=== PATIENT | female | born 1945 | race Caucasian/White ===

== ENCOUNTER 2018-06-15 09:51 | Outpatient (CLI) | payer BC, MEDICARE ==
--- NOTE | 2018-06-15 11:05 | MMO ---
SCREENING MAMMOGRAM: INDICATION: Screening. COMPARISON: Mammogram from 2016, 2015, and 2013. TECHNIQUE: Bilateral CC and MLO views were performed with computer-aided detection. FINDINGS: Benign calcifications of both breasts. Scattered fibroglandular densities. No suspicious mass, arch itectural distortion, or microcalcifications. IMPRESSION: BI-RADS category 2, benign findings. Continued screening is recommended. BIRADS 2: Benign Finding(s) Routine annual screening mammography (for women over age 40) POS: CASSANDRA
== END 2018-06-15 09:52 | disposition home or self-care (01) ==
LOC: SCSMAMMO 09:51
PROVIDERS: ATTEND Internal Medicine
DX: Z12.31 Encounter for screening mammogram for malignant neoplasm of breast (principal)
CPT/HCPCS: 77067

== ENCOUNTER 2018-09-23 09:43 | Outpatient (CLI) | payer BC, MEDICARE ==
--- NOTE | 2018-09-23 11:56 | BD ---
DEXA BONE DENSITY SCAN: Date: 09/23/18 COMPARISON: 09/14/17. HISTORY: Postmenopausal female undergoing screening for osteoporosis. FINDINGS: BMD (g/cm2) Left Femoral Neck 0.573 T-Score -2.5 (previous -2.3) Total Proximal Left Femur 0.715 T-Score -1.9 (previous -1.5) Right Femoral Neck 0.540 T-Score -2.8 (previous -2.9) Total Proximal Right Femur 0.690 T-Score -2.1 (previous -1.7) FRAX-WHO fracture risk assessment tool is not reported as some T-Scores are at or below -2.5. 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 POS: C
== END 2018-09-23 09:44 | disposition home or self-care (01) ==
LOC: BICMAMMO 09:43
PROVIDERS: ATTEND Internal Medicine Rheumatology
DX: M81.0 Age-related osteoporosis without current pathological fracture (principal)
CPT/HCPCS: 77080

== ENCOUNTER 2020-06-21 13:44 | Outpatient (CLI) | payer BC, MEDICARE ==
--- NOTE | 2020-06-21 14:38 | MMO ---
Bilateral MAMMO Bilat Screen [facility]. CLINICAL HISTORY: Patient is 75 years old and is seen for screening. The patient has no family history of breast cancer. The patient has no personal history of cancer. VIEWS: The views performed were: bilateral craniocaudal with tomosynthesis and bilateral mediolateral oblique with tomosynthesis. FILMS COMPARED: The present examination has been compared to prior imaging studies performed at [facility] on 04/11/2014, 05/01/2015, 05/14/2016 and 06/15/2018. This study has been interpreted with the assistance of computer-aided detection. MAMMOGRAM FINDINGS: There are scattered fibroglandular densities. There are stable benign appearing calcifications seen in both breasts. There are no suspicious masses, suspicious calcifications, or new areas of architectural distortion. IMPRESSION: THERE IS NO MAMMOGRAPHIC EVIDENCE OF MALIGNANCY. A ROUTINE FOLLOW-UP MAMMOGRAM IN 1 YEAR IS RECOMMENDED. THE RESULTS OF THIS EXAM WERE SENT TO THE PATIENT. ACR BI-RADS Category 2 - Benign finding MAMMOGRAPHY NOTE: 1. A negative mammogram report should not delay a biopsy if a dominant of clinically suspicious mass is present. 2. Approximately 10% to 15% of breast cancers are not detected by mammography. 3. Adenosis and dense breasts may obscure an underlying neoplasm. Reported by: CARMEN NVAA MD Electonically Signed: [id number]
--- NOTE | 2020-06-21 14:49 | BD ---
Exam: DEXA Bone Density 06/21/20 COMPARISON: 09/23/18 HISTORY: Postmenopausal female undergoing screening for osteoporosis. Bilateral proximal femurs: BMD (g/cm2) T-SCORE Left femoral neck 0.613 -2.1 Previous T-Score -2.5 Total proximal left femur 0.755 -1.5 Previous -1.9 Right femoral neck 0.562 -2.6 Previous T-Score -2.8 Total proximal right femur 0.711 -1.9 Previous -2.1 The FRAX-WHO fracture risk assessment tool is not reported as some T-Scores are at or below negative 2.5. Total bone mineral density within the proximal right femur has increased by 3% since the prior examin ation and bone mineral density within the total proximal left femur has increased by 5.6% when compar ed to prior imaging. Impression: Osteoporosis of the femoral neck on the right correlates with a high risk for fracture. POS: AH
== END 2020-06-21 13:45 | disposition home or self-care (01) ==
LOC: BICMAMMO 13:44
PROVIDERS: ATTEND Internal Medicine
DX: Z12.31 Encounter for screening mammogram for malignant neoplasm of breast (principal); M85.80 Other specified disorders of bone density and structure, unspecified site; M81.0 Age-related osteoporosis without current pathological fracture
CPT/HCPCS: 77063; 77067; 77080

== ENCOUNTER 2020-12-10 06:29 | Day surgery (SDC) | payer BC, MEDICARE ==
[2020-11-29 12:16] VITALS: BMI 24.7
[2020-12-10] MEDS ORDERED: Tranexamic Acid 1,000 MG/10 ML VIAL ONE (07:44)
[2020-12-10] MEDS ORDERED: Vancomycin 1 GM/200 ML BAG ONE (07:45)
[2020-12-10] MEDS ORDERED: Sodium Chloride 0.9% 100 ML ONE (07:47)
[2020-12-10] MEDS ORDERED: Midazolam HCl 2 mg/2 ml Vial ONE (08:07)
[2020-12-10] MEDS ORDERED: Fentanyl 100 MCG/2 ML VIAL ONE ×4 (08:07→11:32)
[2020-12-10] MEDS ORDERED: Fentanyl 100 MCG/2 ML VIAL IV PRN (08:57)
[2020-12-10] MEDS ORDERED: Promethazine HCl 25 MG/ML VIAL IM PRN ×2 (09:00→09:02)
[2020-12-10] MEDS ORDERED: traMADol HCl 50 MG TAB PO PRN ×2 (09:00)
[2020-12-10] MEDS ORDERED: Ropivacaine HCl/PF 250 ML in Premix Bag 1 BAG NERVE BLCK SCH (09:00)
[2020-12-10] MEDS ORDERED: Zolpidem Tartrate 5 MG TAB PO PRN ×2 (09:00→09:02)
[2020-12-10] MEDS ORDERED: Ondansetron PF 4 MG/2 ML Vial IVP PRN ×2 (09:00→09:02)
[2020-12-10] MEDS ORDERED: Acetaminophen 325 MG TAB PO PRN (09:02)
[2020-12-10] MEDS ORDERED: diphenhydrAMINE 25 MG CAP PO PRN (09:02)
[2020-12-10] MEDS ORDERED: PROPOFOL 200 MG/20 ML VIAL ONE (10:28)
[2020-12-10] MEDS ORDERED: PHENYLEPHRINE-NS 100 MCG/ML 10 ML SYRINGE ONE (10:28)
[2020-12-10] MEDS ORDERED: Ondansetron PF 4 MG/2 ML Vial ONE (10:28)
[2020-12-10] MEDS ORDERED: Dexamethasone 20 MG/5 ML VIAL ONE (10:28)
[2020-12-10] MEDS ORDERED: ePHEDrine 50 MG/ML VIAL ONE (10:28)
[2020-12-10] MEDS ORDERED: Ropivacaine 2% HCl/PF (20 MG/10 ML VIAL) ONE (10:28)
[2020-12-10] MEDS ORDERED: Bupivacaine HCl 0.5%/Epinephrine 1:200,000/PF 30 ml Vial ONE (10:28)
[2020-12-10] MEDS ORDERED: Metoclopramide HCl 10 MG/2 ML VIAL ONE (10:28)
[2020-12-10] MEDS ORDERED: Ketorolac Tromethamine 30 MG/ML VIAL ONE (10:28)
[2020-12-10] MEDS ORDERED: Lidocaine 1% PF 5 ML VIAL ONE (10:28)
[2020-12-10] MEDS ORDERED: Promethazine HCl 25 MG/ML VIAL ONE (11:32)
[2020-12-10] MEDS ORDERED: Ropivacaine 0.2% 550 ML 550 ML NERVE BLCK SCH (12:00)
[2020-12-10] MEDS: Sodium Chloride 0.9% 1,000 ML IV SCH (17:45)
[2020-12-10] MEDS: Ketorolac Tromethamine 30 MG/ML VIAL IVP SCH ×3 (17:46→23:22)
[2020-12-10] MEDS: CEFAZOLIN 2 GM in Premix Bag 1 BAG IVPB SCH ×2 (18:04→23:22)
[2020-12-10] MEDS: HYDROcodone/Acetaminophen 10/325 mg Tablet PO PRN (20:21)
[2020-12-10] MEDS: Ferrous Gluconate 324 MG TAB PO SCH (20:22)
[2020-12-10] MEDS: Senokot S 8.6-50 MG TAB PO SCH (20:23)
[2020-12-10] MEDS: Aspirin 81 mg Enteric Coated Tablet PO SCH (20:23)
[2020-12-11] MEDS: Sodium Chloride 0.9% 1,000 ML IV SCH ×2 (04:34→20:10)
[2020-12-11] MEDS: Ketorolac Tromethamine 30 MG/ML VIAL IVP SCH ×4 (05:10→23:30)
[2020-12-11 06:33] LABS: Hemoglobin 11.7 g/dL (12.0-16.0); Mean Corpuscular HGB CONC 33.8 g/dL (32.0-36.0); Mean Corpuscular Hemoglobin 33.4 pg (27.0-31.0); Mean Corpuscular Volume 98.9 fL (78.0-98.0); Mean Platelet Volume 7.2 fL (7.4-10.4); Platelet Count 276 thou/uL (130-400); RBC Distribution Width 11.4 % (11.5-14.5); Red Blood Cell (RBC) Count 3.51 mill/uL (4.20-5.40)
[2020-12-11] MEDS: Aspirin 81 mg Enteric Coated Tablet PO SCH ×2 (08:46→21:03)
[2020-12-11] MEDS: Senokot S 8.6-50 MG TAB PO SCH ×2 (08:46→21:03)
[2020-12-11] MEDS: Cholecalciferol 1,000 UNITS (25 MCG) TAB PO SCH (08:46)
[2020-12-11] MEDS: HYDROcodone/Acetaminophen 10/325 mg Tablet PO PRN ×3 (08:47→17:32)
[2020-12-11] MEDS: Ferrous Gluconate 324 MG TAB PO SCH ×2 (12:03→21:02)
[2020-12-11] MEDS: Multivit, Therapeutic 1 TAB PO SCH (12:03)
[2020-12-11] MEDS: Multivitamin W/ Minerals 1 TAB PO SCH (12:04)
[2020-12-11] MEDS ORDERED: Rosuvastatin 10 MG TAB PO SCH (21:00)
[2020-12-12] MEDS: HYDROcodone/Acetaminophen 10/325 mg Tablet PO PRN ×3 (01:23→12:59)
[2020-12-12] MEDS: Sodium Chloride 0.9% 1,000 ML IV SCH ×2 (03:40→12:11)
[2020-12-12 05:32] LABS: Hemoglobin 11.2 g/dL (12.0-16.0); Mean Corpuscular Hemoglobin 32.9 pg (27.0-31.0); Mean Corpuscular Volume 99.8 fL (78.0-98.0); Mean Platelet Volume 6.8 fL (7.4-10.4); Platelet Count 244 thou/uL (130-400); RBC Distribution Width 11.5 % (11.5-14.5); Red Blood Cell (RBC) Count 3.39 mill/uL (4.20-5.40); White Blood Cell (WBC) Count 10.9 thou/uL (4.8-10.8)
[2020-12-12] MEDS: Ketorolac Tromethamine 30 MG/ML VIAL IVP SCH (05:35)
[2020-12-12] MEDS: Aspirin 81 mg Enteric Coated Tablet PO SCH (08:39)
[2020-12-12] MEDS: Cholecalciferol 1,000 UNITS (25 MCG) TAB PO SCH (08:39)
[2020-12-12] MEDS: Multivitamin W/ Minerals 1 TAB PO SCH (08:39)
[2020-12-12] MEDS: Senokot S 8.6-50 MG TAB PO SCH (08:39)
[2020-12-12] MEDS: Ferrous Gluconate 324 MG TAB PO SCH (08:39)
[2020-12-12] MEDS: Multivit, Therapeutic 1 TAB PO SCH (08:40)
[2020-12-12 11:08] VITALS: BP 131/67; TEMP 98.4
[2020-12-20] MEDS ORDERED: Aspirin Chewable 81 MG TAB PO SCH (09:00)
== END 2020-12-12 14:20 | disposition home or self-care (01) ==
LOC: SDC 06:29 → SJJU 09:02 → SDC 12-12 14:20
PROVIDERS: ATTEND Orthopaedic Surgery
PROC: 0SRC0J9 Replacement of Right Knee Joint with Synthetic Substitute, Cemented, Open Approach (ICD-10-PCS; principal; 2020-12-10)
DX: M17.11 Unilateral primary osteoarthritis, right knee (principal); Z79.1 Long term (current) use of non-steroidal anti-inflammatories (NSAID); Z79.899 Other long term (current) drug therapy; Z91.048 Other nonmedicinal substance allergy status
CPT/HCPCS: 36415; 85027; A4306; C1713; C1776; J0690; J1100; J1885; J2250; J2405; J2550; J2704; J2765; J2795; J3010; J3370; J3490

== ENCOUNTER 2021-07-14 08:51 | Outpatient (CLI) | payer BC, MEDICARE | END 2021-07-14 08:52 | disposition home or self-care (01) | LOC: BICMAMMO 08:51 | PROVIDERS: ATTEND Internal Medicine | DX: Z12.31 Encounter for screening mammogram for malignant neoplasm of breast (principal) | CPT/HCPCS: 77063; 77067 ==

== ENCOUNTER 2021-08-14 12:51 | Outpatient (CLI) | payer BC, MEDICARE ==
[2021-08-14 13:40] LABS: #Basophils 0.1 10x3/uL (0.0-0.2); #Eosinphils 0.2 10x3/uL (0.0-0.5); #Monocytes 0.7 10x3/uL (0.0-1.1); #Neutrophils 5.5 10x3/uL (1.5-8.4); %Basophils 0.6 % (0.0-2.0); %Eosinophils 1.9 % (0.0-6.0); %Monocytes 8.3 % (0.0-10.0); %Neutrophils 67.6 % (40.0-75.0); Hemoglobin 14.8 g/dL (12.0-15.5); Mean Corpuscular HGB CONC 33.8 g/dL (32.0-36.0); Mean Corpuscular Volume 94.8 fl (81.6-98.3); Mean Platelet Volume 9.8 fl (7.4-10.4); Platelet Count 295 10x3/uL (150-450); Red Blood Cell (RBC) Count 4.62 10x6/uL (3.90-5.03); White Blood Cell (WBC) Count 8.1 10x3/uL (3.5-10.5)
[2021-08-14 13:41] LABS: Bilirubin Neg (Negative); Blood, Urine Negative (Negative); Clarity Clear (Clear); Glucose, Urine (Dipstick) Normal (Negative); Ketone, Urine Negative (Negative); Leukocyte Negative (Negative); Nitrite Negative (Negative); Protein, Urine (Dipstick) Negative (Neg-Trace); Urobilinogen Normal mg/dL (Less than 2)
[2021-08-14 13:52] LABS: INR-International Normal Ratio 0.9; Prothrombin Time 10.3 sec (9.5-12.1)
[2021-08-14 13:54] LABS: Anion Gap 14 mmol/L (10-20); BUN (Urea Nitrogen) 19 mg/dL (9.8-20.1); Calc. Creatinine Clearance 0 mL/min (70-130); Calcium 9.4 mg/dL (7.8-10.44); Carbon Dioxide 26 mmol/L (23-31); Chloride 104 mmol/L (98-107); Glucose 117 mg/dL (83-110); Potassium 4.1 mmol/L (3.5-5.1); Sodium 140 mmol/L (136-145)
[2021-08-15 01:42] LABS: SARS-CoV-2 PCR by NAA Not Detected (NotDetected)
== END 2021-08-14 12:52 | disposition home or self-care (01) ==
LOC: LABBT 12:51
PROVIDERS: ATTEND Orthopaedic Surgery
DX: Z01.818 Encounter for other preprocedural examination (principal); M17.12 Unilateral primary osteoarthritis, left knee; Z20.822 Contact with and (suspected) exposure to COVID-19
CPT/HCPCS: 80048; 81003; 85025; 85610; 87081; 93005; 93010; U0003; U0005

== ENCOUNTER 2021-08-19 06:35 | Day surgery (SDC) | payer BC, MEDICARE ==
[2021-08-18 10:46] VITALS: BMI 23.8
[2021-08-19] MEDS ORDERED: Vancomycin 1 GM/200 ML BAG ONE (07:07)
[2021-08-19] MEDS ORDERED: Tranexamic Acid 1,000 MG/10 ML VIAL ONE (07:07)
[2021-08-19] MEDS ORDERED: Sodium Chloride 0.9% 100 ML ONE (07:07)
[2021-08-19] MEDS ORDERED: ceFAZolin 2 GM/DEX 5% 100 ML BAG ONE (07:07)
[2021-08-19] MEDS ORDERED: Fentanyl 100 MCG/2 ML VIAL ONE ×4 (07:48→11:59)
[2021-08-19] MEDS ORDERED: Midazolam HCl 2 mg/2 ml Vial ONE (07:48)
[2021-08-19] MEDS ORDERED: Fentanyl 100 MCG/2 ML VIAL IV PRN (08:04)
[2021-08-19] MEDS ORDERED: Promethazine HCl 25 MG/ML VIAL IM PRN ×3 (08:15→11:54)
[2021-08-19] MEDS ORDERED: traMADol HCl 50 MG TAB PO PRN ×2 (08:15)
[2021-08-19] MEDS ORDERED: HYDROcodone/Acetaminophen 10/325 mg Tablet PO PRN (08:15)
[2021-08-19] MEDS ORDERED: Ondansetron PF 4 MG/2 ML Vial IVP PRN ×2 (08:15→11:54)
[2021-08-19] MEDS ORDERED: Ropivacaine HCl/PF 250 ML in Premix Bag 1 BAG NERVE BLCK SCH (08:15)
[2021-08-19] MEDS ORDERED: Zolpidem Tartrate 5 MG TAB PO PRN ×2 (08:15→11:54)
[2021-08-19] MEDS ORDERED: Lidocaine 1% PF 5 ML VIAL ONE (09:31)
[2021-08-19] MEDS ORDERED: PROPOFOL 200 MG/20 ML VIAL ONE (09:31)
[2021-08-19] MEDS ORDERED: Ondansetron PF 4 MG/2 ML Vial ONE (09:31)
[2021-08-19] MEDS ORDERED: Dexamethasone 20 MG/5 ML VIAL ONE (09:31)
[2021-08-19] MEDS ORDERED: Bupivacaine HCl 0.5%/Epinephrine 1:200,000/PF 30 ml Vial ONE (09:31)
[2021-08-19] MEDS ORDERED: Ketorolac Tromethamine 30 MG/ML VIAL ONE ×2 (09:31→11:22)
[2021-08-19] MEDS ORDERED: Promethazine HCl 25 MG/ML VIAL IVPB PRN (10:36)
[2021-08-19] MEDS ORDERED: Ondansetron HCl/PF 4 MG/2 ML Vial IVP PRN (10:36)
[2021-08-19] MEDS ORDERED: diphenhydrAMINE 25 MG CAP PO PRN (11:54)
[2021-08-19] MEDS ORDERED: Acetaminophen 325 MG TAB PO PRN (11:54)
[2021-08-19] MEDS: HYDROcodone/Acetaminophen 10/325 mg Tablet PO PRN (14:05)
[2021-08-19] MEDS: Ketorolac Tromethamine 30 MG/ML VIAL IVP SCH ×3 (14:50→18:19)
[2021-08-19] MEDS: ceFAZolin Sodium/D5W 2 GM in Premix Bag 1 BAG IVPB SCH (18:19)
[2021-08-19] MEDS: Aspirin 81 mg Enteric Coated Tablet PO SCH (20:53)
[2021-08-19] MEDS ORDERED: Rosuvastatin 10 MG TAB PO SCH (21:00)
[2021-08-20] MEDS: Ketorolac Tromethamine 30 MG/ML VIAL IVP SCH ×3 (02:00→14:03)
[2021-08-20] MEDS: ceFAZolin Sodium/D5W 2 GM in Premix Bag 1 BAG IVPB SCH (02:37)
[2021-08-20 05:34] LABS: Hemoglobin 11.9 g/dL (12.0-16.0); Mean Corpuscular HGB CONC 34.5 g/dL (32.0-36.0); Mean Corpuscular Hemoglobin 33.7 pg (27.0-31.0); Mean Corpuscular Volume 97.8 fL (78.0-98.0); Mean Platelet Volume 7.6 fL (7.4-10.4); Platelet Count 260 thou/uL (130-400); RBC Distribution Width 11.6 % (11.5-14.5); Red Blood Cell (RBC) Count 3.52 mill/uL (4.20-5.40); White Blood Cell (WBC) Count 12.9 thou/uL (4.8-10.8)
[2021-08-20] MEDS ORDERED: Senokot S 8.6-50 MG TAB PO SCH (09:00)
[2021-08-20] MEDS ORDERED: Non-Formulary Item 1 EACH (Multivitamin [Multivitamin] 1 EACH Tablet) PO SCH (09:00)
[2021-08-20] MEDS ORDERED: Multivitamin W/ Minerals 1 TAB PO SCH (09:00)
[2021-08-20] MEDS ORDERED: Cholecalciferol 1,000 UNITS (25 MCG) TAB PO SCH (09:00)
[2021-08-20] MEDS ORDERED: CeleCOXIB 100 MG CAP PO SCH (09:00)
[2021-08-20] MEDS ORDERED: Aspirin Chewable 81 MG TAB PO SCH (09:00)
[2021-08-20] MEDS ORDERED: Ferrous Gluconate 324 MG TAB PO SCH (09:00)
[2021-08-20] MEDS: Aspirin 81 mg Enteric Coated Tablet PO SCH (10:34)
[2021-08-20] MEDS ORDERED: Ropivacaine 0.2% 550 ML 550 ML NERVE BLCK SCH (11:15)
[2021-08-20] MEDS: HYDROcodone/Acetaminophen 10/325 mg Tablet PO PRN (11:42)
[2021-08-20 12:15] VITALS: BP 128/72; TEMP 97.9
== END 2021-08-20 15:05 | disposition home or self-care (01) ==
LOC: SDC 06:35 → SURG B 11:54 → SDC 08-20 15:05
PROVIDERS: ATTEND Orthopaedic Surgery
PROC: 8E0YXBZ Computer Assisted Procedure of Lower Extremity (ICD-10-PCS; principal; 2021-08-19)
PROC: 0SRD0J9 Replacement of Left Knee Joint with Synthetic Substitute, Cemented, Open Approach (ICD-10-PCS; principal; 2021-08-19)
PROC: 3E0T3BZ Introduction of Anesthetic Agent into Peripheral Nerves and Plexi, Percutaneous Approach (ICD-10-PCS; principal; 2021-08-19)
DX: M17.12 Unilateral primary osteoarthritis, left knee (principal); E78.00 Pure hypercholesterolemia, unspecified; M81.0 Age-related osteoporosis without current pathological fracture; Z96.651 Presence of right artificial knee joint; Z91.048 Other nonmedicinal substance allergy status; Z90.49 Acquired absence of other specified parts of digestive tract; Z90.710 Acquired absence of both cervix and uterus; Z98.890 Other specified postprocedural states; Z98.1 Arthrodesis status; Z79.2 Long term (current) use of antibiotics; Z79.82 Long term (current) use of aspirin; Z79.1 Long term (current) use of non-steroidal anti-inflammatories (NSAID); Z79.891 Long term (current) use of opiate analgesic; Z79.899 Other long term (current) drug therapy
CPT/HCPCS: 36415; 85027; A4306; C1713; J1100; J1885; J2250; J2405; J2550; J2704; J2795; J3010; J3370; J3490

== ENCOUNTER 2022-08-19 08:54 | Outpatient (CLI) | payer BC, MEDICARE | END 2022-08-19 08:55 | disposition home or self-care (01) | LOC: BICMAMMO 08:54 | PROVIDERS: ATTEND Internal Medicine | DX: Z12.31 Encounter for screening mammogram for malignant neoplasm of breast (principal); Z51.81 Encounter for therapeutic drug level monitoring; M81.8 Other osteoporosis without current pathological fracture; Z79.899 Other long term (current) drug therapy | CPT/HCPCS: 77063; 77067; 77080 ==

== ENCOUNTER 2022-10-08 10:04 | Outpatient (CLI) | payer BC, MEDICARE | END 2022-10-08 10:05 | disposition home or self-care (01) | LOC: SCSMRI 10:04 → BICMRI 10:05 | PROVIDERS: ATTEND Physician Assistant | DX: M47.26 Other spondylosis with radiculopathy, lumbar region (principal); M43.16 Spondylolisthesis, lumbar region; M47.817 Spondylosis without myelopathy or radiculopathy, lumbosacral region; S32.011D Stable burst fracture of first lumbar vertebra, subsequent encounter for fracture with routine healing; M48.05 Spinal stenosis, thoracolumbar region; M48.061 Spinal stenosis, lumbar region without neurogenic claudication; M48.07 Spinal stenosis, lumbosacral region; Z98.890 Other specified postprocedural states; Z98.1 Arthrodesis status | CPT/HCPCS: 72120; 72148 ==

== ENCOUNTER 2022-10-23 12:00 | Outpatient (CLI) | payer BC, MEDICARE | END 2022-10-23 12:01 | disposition home or self-care (01) | LOC: SCSCT 12:00 | PROVIDERS: ATTEND Physician Assistant | DX: M47.26 Other spondylosis with radiculopathy, lumbar region (principal); M47.27 Other spondylosis with radiculopathy, lumbosacral region; Z98.890 Other specified postprocedural states | CPT/HCPCS: 72131 ==

== ENCOUNTER 2022-11-10 08:23 | Outpatient (CLI) | payer BC, MEDICARE | END 2022-11-10 08:24 | disposition home or self-care (01) | LOC: SCSRAD 08:23 | PROVIDERS: ATTEND Surgery | DX: M54.50 Low back pain, unspecified (principal); M47.816 Spondylosis without myelopathy or radiculopathy, lumbar region; M46.06 Spinal enthesopathy, lumbar region; M47.814 Spondylosis without myelopathy or radiculopathy, thoracic region; M46.04 Spinal enthesopathy, thoracic region; Z98.890 Other specified postprocedural states; W19.XXXA Unspecified fall, initial encounter | CPT/HCPCS: 72072; 72100 ==

== ENCOUNTER 2023-05-27 09:34 | Outpatient (CLI) | payer BC, MEDICARE | END 2023-05-27 09:35 | disposition home or self-care (01) | LOC: SCSMRI 09:34 | PROVIDERS: ATTEND Surgery | DX: M47.26 Other spondylosis with radiculopathy, lumbar region (principal); M47.817 Spondylosis without myelopathy or radiculopathy, lumbosacral region | CPT/HCPCS: 72148 ==

== ENCOUNTER 2023-09-28 11:51 | Outpatient (CLI) | payer BC, MEDICARE | END 2023-09-28 11:52 | disposition home or self-care (01) | LOC: BICMAMMO 11:51 | PROVIDERS: ATTEND Internal Medicine | DX: Z12.31 Encounter for screening mammogram for malignant neoplasm of breast (principal) | CPT/HCPCS: 77063; 77067 ==

== ENCOUNTER 2023-10-04 12:55 | Outpatient (CLI) | payer BC, MEDICARE ==
[2023-10-04 14:02] LABS: Hematocrit 41.6 % (34.9-44.5); Hemoglobin 14.6 g/dL (12.0-15.5); Mean Corpuscular HGB CONC 35.1 g/dL (32.0-36.0); Mean Corpuscular Volume 93.9 fl (81.6-98.3); Mean Platelet Volume 9.9 fl (7.4-10.4); Platelet Count 322 10x3/uL (150-450); RBC Distribution Width 12.2 % (11.5-14.5); Red Blood Cell (RBC) Count 4.43 10x6/uL (3.90-5.03); White Blood Cell (WBC) Count 9.2 10x3/uL (3.5-10.5)
[2023-10-04 14:31] LABS: Anion Gap 16 mmol/L (10-20); BUN (Urea Nitrogen) 25 mg/dL (9.8-20.1); Calc. Creatinine Clearance 0 mL/min (70-130); Calcium 9.7 mg/dL (7.8-10.44); Carbon Dioxide 24 mmol/L (23-31); Chloride 104 mmol/L (98-107); Estimated GFR 58; Glucose 130 mg/dL (83-110); Potassium 4.1 mmol/L (3.5-5.1); Sodium 140 mmol/L (136-145)
[2023-10-04 14:36] LABS: PTT 27.6 sec (22.0-33.0); Prothrombin Time 10.3 sec (9.5-12.1)
== END 2023-10-04 12:56 | disposition home or self-care (01) ==
LOC: LABBT 12:55
PROVIDERS: ATTEND Surgery
DX: Z01.818 Encounter for other preprocedural examination (principal); M54.16 Radiculopathy, lumbar region; M48.062 Spinal stenosis, lumbar region with neurogenic claudication
CPT/HCPCS: 80048; 85027; 85610; 85730; 93005; 93010

== ENCOUNTER 2023-10-15 07:30 | Observation (INO) | payer BC, MEDICARE ==
[2023-10-04 13:22] VITALS: BMI 24.7
[2023-10-15] MEDS ORDERED: CEFAZOLIN 2 GM VIAL ONE (08:12)
[2023-10-15] MEDS ORDERED: Lidocaine 1% MPF 2 ML VIAL ONE (08:12)
[2023-10-15] MEDS ORDERED: Sodium Chloride 0.9% 100 ML ONE (08:13)
[2023-10-15] MEDS ORDERED: Lidocaine 1% PF 5 ML VIAL ONE (08:50)
[2023-10-15] MEDS ORDERED: Rocuronium Bromide 10 MG/ML (10ML VIAL) ONE (08:50)
[2023-10-15] MEDS ORDERED: PROPOFOL 20 ML ONE (08:50)
[2023-10-15] MEDS ORDERED: fentaNYL PF 100 MCG/2 ML SYRINGE ONE ×2 (08:50→12:29)
[2023-10-15] MEDS ORDERED: Acetaminophen 500 MG TAB ONE ×2 (08:53→08:58)
[2023-10-15] MEDS ORDERED: PHENYLEPHRINE-NS 100 MCG/ML 10 ML SYRINGE ONE ×2 (09:25→11:49)
[2023-10-15] MEDS ORDERED: Vancomycin 1 GM VIAL ONE (10:44)
[2023-10-15] MEDS ORDERED: Thrombin 5000 UNITS/5 ML VIAL ONE (10:45)
[2023-10-15] MEDS ORDERED: Dexamethasone 20 MG/5 ML VIAL ONE (11:22)
[2023-10-15] MEDS ORDERED: Ondansetron PF 4 MG/2 ML Vial ONE (11:22)
[2023-10-15] MEDS ORDERED: ePHEDrine Sulfate 50 MG/10 ML VIAL ONE (11:43)
[2023-10-15] MEDS ORDERED: Promethazine HCl 25 MG/ML VIAL IM PRN (12:22)
[2023-10-15] MEDS ORDERED: PACU-Morphine 4MG/ML VIAL SLOW IVP PRN (12:22)
[2023-10-15] MEDS ORDERED: Ondansetron HCl/PF 4 MG/2 ML Vial IVP PRN (12:22)
[2023-10-15] MEDS ORDERED: Morphine Sulfate 2 MG/ML SYRINGE SLOW IVP PRN (12:22)
[2023-10-15] MEDS ORDERED: HYDROmorphone 2 MG/ML VIAL SLOW IVP PRN (12:22)
[2023-10-15] MEDS ORDERED: Ketorolac Tromethamine 30 MG (1 mL) VIAL ONE (12:24)
[2023-10-15] MEDS ORDERED: NEOSTIGMINE 3 MG/3 ML SYR 3 MG/3 ML SYRINGE ONE (12:29)
[2023-10-15] MEDS ORDERED: Glycopyrrolate 0.2 MG/ML 5 ML SYRINGE ONE (12:29)
[2023-10-15] MEDS ORDERED: diphenhydrAMINE 50 MG/ML VIAL ONE (12:30)
[2023-10-15] MEDS ORDERED: HYDROcodone/Acetaminophen 7.5/325 mg Tablet PO PRN (13:03)
[2023-10-15] MEDS ORDERED: diphenhydrAMINE 25 MG CAP PO PRN (13:03)
[2023-10-15] MEDS ORDERED: Morphine 2 MG/ML VIAL SLOW IVP PRN (13:03)
[2023-10-15] MEDS ORDERED: traMADol HCl 50 MG TAB PO PRN (13:03)
[2023-10-15] MEDS ORDERED: Acetaminophen 325 MG TAB PO PRN (13:03)
[2023-10-15] MEDS ORDERED: Ondansetron PF 4 MG/2 ML Vial IVP PRN (13:03)
[2023-10-15] MEDS ORDERED: tiZANidine HCl 4 MG TAB PO PRN (13:05)
[2023-10-15] MEDS ORDERED: HYDROcodone/Acetaminophen 10/325 mg Tablet PO PRN (13:07)
[2023-10-15] MEDS: Sodium Chloride 0.9% 1,000 ML IV SCH (16:03)
[2023-10-15] MEDS: CEFAZOLIN 2 GM in Sodium Chloride 0.9% 100 ML IVPB SCH (16:45)
[2023-10-15] MEDS: Acetaminophen/Codeine 30-300mg Tablet PO PRN (17:08)
[2023-10-15] MEDS: Docusate 100 MG CAP PO SCH (20:37)
[2023-10-15] MEDS ORDERED: Multivit, Therapeutic 1 TAB PO SCH (21:00)
[2023-10-15] MEDS ORDERED: Losartan 25 MG TAB PO SCH (21:00)
[2023-10-15] MEDS ORDERED: Rosuvastatin 10 MG TAB PO SCH (21:00)
[2023-10-15] MEDS ORDERED: Cholecalciferol 1,000 UNITS (25 MCG) TAB PO SCH (21:00)
[2023-10-16] MEDS: CEFAZOLIN 2 GM in Sodium Chloride 0.9% 100 ML IVPB SCH (01:39)
[2023-10-16] MEDS: Sodium Chloride 0.9% 1,000 ML IV SCH ×2 (01:39→13:29)
[2023-10-16] MEDS: Docusate 100 MG CAP PO SCH (09:22)
[2023-10-16 12:55] VITALS: BP 138/69; TEMP 98.6
[2023-10-16] MEDS: Acetaminophen/Codeine 30-300mg Tablet PO PRN (14:00)
== END 2023-10-16 14:14 | disposition home or self-care (01) ==
LOC: SDC 07:30 → T4-B 13:03
PROVIDERS: ADMIT Surgery; ATTEND Surgery
PROC: 01NB0ZZ Release Lumbar Nerve, Open Approach (ICD-10-PCS; principal; 2023-10-15)
DX: M48.062 Spinal stenosis, lumbar region with neurogenic claudication (principal); M54.16 Radiculopathy, lumbar region; M48.08 Spinal stenosis, sacral and sacrococcygeal region
CPT/HCPCS: J1100; J1200; J1885; J2405; J2704; J3370; J3490

== ENCOUNTER 2024-11-06 09:12 | Outpatient (CLI) | payer BC, MEDICARE | END 2024-11-06 09:13 | disposition home or self-care (01) | LOC: BICMAMMO 09:12 | PROVIDERS: ATTEND Internal Medicine Rheumatology | DX: Z12.31 Encounter for screening mammogram for malignant neoplasm of breast (principal); M81.8 Other osteoporosis without current pathological fracture; M85.851 Other specified disorders of bone density and structure, right thigh; M85.852 Other specified disorders of bone density and structure, left thigh; Z80.3 Family history of malignant neoplasm of breast | CPT/HCPCS: 77063; 77067; 77080 ==